=== PATIENT | male | born 1975 | race Two or more races ===

== ENCOUNTER → 2019-11-27 | Emergency (ER) | payer BC, OTHER ==
[~2019-11-27] VITALS: Ht 185.4 cm; Wt 99.8 kg
[~2019-11-27] MED LIST: LORazepam 2MG/ML-1ML VIAL IV ONE; SODIUM CHLORIDE 0.9% 1,000 ML IV ONE; THIAMINE 100mg/ml INJ (200mg/2ml VIAL) IV ONE; hydrALAZINE HCL 20 MG/ML VL IV ONE
[2019-11-27 16:24] LABS: Basophils # (auto) 0 10 ^3/uL (0-0.2); Eosinophils # (auto) 0.1 10 ^3/uL (0-0.8); Lymphocytes # (auto) 1.3 10 ^3/uL (0.4-5.4); Monocytes # (auto) 0.5 10 ^3/uL (0-1.3)
[2019-11-27 16:27] LABS: Basophils % (auto) 0.7 % (0.0-2.0); Eosinophils % (auto) 1.4 % (0.0-7.0); Lymphocytes % (auto) 22.3 % (10.0-50.0); Mean Corpuscular Hemoglobin 33.4 pg (28.0-32.0); Mean Corpuscular Hgb Conc. 34.8 g/dL (32.0-36.0); Mean Corpuscular Volume 95.9 fL (80.0-100.0); Monocytes % (auto) 8.2 % (0.0-12.0); Neutrophils % (auto) 67.4 % (37.0-80.0); Nucleated Red Blood Cells % 0.9 %; Platelet Count (auto) 148 10^3/uL (140-450); Red Blood Cells 6.37 10^6/uL (4.5-5.90); Red Cell Distribution Width 12.5 % (11.8-14.3); White Blood Cell 5.9 10^3/uL (4.4-10.8)
[2019-11-27 16:30] LABS: Hematocrit 61.1 % (41.0-53.0)
[2019-11-27 16:38] LABS: Hemoglobin 21.3 g/dL (13.5-17.5)
[2019-11-27 16:39] LABS: Chloride 105 mmol/L (98-107); Potassium 3.9 mmol/L (3.5-5.1); Sodium 136 mmol/L (136-145)
[2019-11-27 16:43] LABS: Alanine Aminotransferase 42 U/L (16-61); Albumin 3.8 g/dL (3.4-5.0); Anion Gap 8 (5-15); Aspartate Aminotransferase 22 U/L (15-37); BUN/Creatinine Ratio 8.4; Blood Urea Nitrogen 10 mg/dL (7-18); Calcium 8.9 mg/dL (8.5-10.1); Carbon Dioxide 23 mmol/L (21-32); GFR African American 86 mL/min; GFR Non-African American 71 mL/min; Glucose 105 mg/dL (74-106)
[2019-11-27 16:44] LABS: Amylase 39 U/L (25-115); Lipase 121 U/L (73-393)
[2019-11-27 16:47] LABS: Urine Bacteria NONE SEEN /hpf (None Seen); Urine Blood Negative /uL (Negative); Urine Specific Gravity 1.011 (1.001-1.035); Urine WBC None Seen /hpf (0 - 3)
[2019-11-27 16:48] LABS: Alkaline Phosphatase 114 U/L (45-117); Bilirubin, Total 0.9 mg/dL (0.2-1.0); Total Protein 8.5 g/dL (6.4-8.2)
[2019-11-27 17:02] LABS: Amphetamine Screen, Urine NEGATIVE (NEGATIVE); Barbiturate Scree,Urine NEGATIVE (NEGATIVE); Benzodiazephine Screen, Urine NEGATIVE (NEGATIVE); Cannabinoid Screen, Urine NEGATIVE (NEGATIVE); Cocaine Screen, Urine NEGATIVE (NEGATIVE); Opiate Scree,Urine NEGATIVE (NEGATIVE); Phencyclidine Screen, Urine NEGATIVE (NEGATIVE)
[2019-11-27 20:00] VITALS: BP 145/101
== END | disposition home or self-care (01) ==
LOC: ER 15:06
DX: J40 Bronchitis, not specified as acute or chronic (principal); F10.239 Alcohol dependence with withdrawal, unspecified; K42.9 Umbilical hernia without obstruction or gangrene; K57.30 Diverticulosis of large intestine without perforation or abscess without bleeding; I10 Essential (primary) hypertension; E78.5 Hyperlipidemia, unspecified; R11.2 Nausea with vomiting, unspecified
CPT/HCPCS: 36415; 71046; 74176; 80053; 80307; 80320; 81001; 82150; 83690; 83880; 84425; 84484; 85025; 93005; 96361; 96374; 96375; 99285; J0360; J2060; J3411

== ENCOUNTER 2022-02-25 08:11 | Emergency (ER) | payer SELFPAY ==
[~2022-02-25] VITALS: Ht 188 cm; Wt 100.0 kg
[2022-02-25 08:46] LABS: Basophils # (auto) 0 10 ^3/uL (0-0.2); Eosinophils # (auto) 0.1 10 ^3/uL (0-0.8); Lymphocytes # (auto) 0.9 10 ^3/uL (0.4-5.4); Monocytes # (auto) 0.4 10 ^3/uL (0-1.3); Nucleated Red Blood Cells % 0.1 %; White Blood Cell 3.5 10^3/uL (4.4-10.8)
[2022-02-25 08:54] LABS: Basophils % (auto) 1.3 % (0.0-2.0); Eosinophils % (auto) 3.3 % (0.0-7.0); Hematocrit 53.3 % (41.0-53.0); Hemoglobin 18.7 g/dL (13.5-17.5); Lymphocytes % (auto) 25.7 % (10.0-50.0); Mean Corpuscular Hgb Conc. 35.1 g/dL (32.0-36.0); Mean Corpuscular Volume 99.5 fL (80.0-100.0); Monocytes % (auto) 11.1 % (0.0-12.0); Neutrophils % (auto) 58.6 % (37.0-80.0); Red Blood Cells 5.36 10^6/uL (4.5-5.90)
[2022-02-25 08:56] LABS: Albumin 3.8 g/dL (3.4-5.0); Calcium 8.8 mg/dL (8.5-10.1); Potassium 4.3 mmol/L (3.5-5.1)
[2022-02-25 08:59] LABS: BUN/Creatinine Ratio 10.4
[2022-02-25] MEDS ORDERED: FOLITAB22 PO (13:23)
[2022-02-25] MEDS ORDERED: CHL25C GT (13:23)
[2022-02-25] MEDS ORDERED: THIA100T10 GT (13:23)
[2022-02-25 13:53] VITALS: BP 136/100
== END 2022-02-25 14:03 | disposition home or self-care (01) ==
LOC: ER 08:11
DX: R07.89 Other chest pain (principal); F10.239 Alcohol dependence with withdrawal, unspecified; F15.23 Other stimulant dependence with withdrawal; I10 Essential (primary) hypertension; R74.8 Abnormal levels of other serum enzymes; E78.5 Hyperlipidemia, unspecified; F17.210 Nicotine dependence, cigarettes, uncomplicated
CPT/HCPCS: 36415; 71045; 80053; 84484; 85025; 93005